=== PATIENT | female | born 1995 | race Native Hawaiian/Other Pacific Islander ===

== ENCOUNTER 2019-06-26 13:35 | Emergency (ER) | payer SELFPAY ==
--- NOTE | 2019-06-26 14:13 | Event Note ---
ED Screening Note Date of service: 06/26/19 Time: 14:10 ED Screening Note: Pt complains of left flank pain x 2 weeks pain radiating to LLQ +dysuria hx of pyelonephritis This initial assessment/diagnostic orders/clinical plan/treatment(s) is/are subject to change based on patients health status, clinical progression and re- assessment by fellow clinical providers in the ED. Further treatment and workup at subsequent clinical providers discretion. Patient/guardian urged not to elope from the ED as their condition may be serious if not clinically assessed and managed. Initial orders include: labs
[2019-06-26 14:54] LABS: Bilirubin,Urine NEG (Negative); Blood,Urine NEG (Negative); Color,Urine Straw (Yellow); Mucus,Urine FEW /HPF; Protein,Urine <15 mg/dL mg/dL (Negative); Urobilinogen,Urine < 2.0 mg/dL (<2.0)
[2019-06-26 15:05] LABS: HCG Qualitative,Urine Negative (Negative)
[2019-06-26 16:10] LABS: Basophils # (Auto) 0.1 K/mm3 (0.0-0.1); Basophils % (Auto) 0.8 % (0.0-1.8); Eosinophils # (Auto) 0.3 K/mm3 (0.0-0.4); Eosinophils % (Auto) 2.4 % (0.0-4.3); Hematocrit 41.4 % (30.3-42.9); Hemoglobin 13.8 gm/dl (10.1-14.3); Lymphocytes # (Auto) 2.4 K/mm3 (1.2-5.4); Lymphocytes % (Auto) 20.7 % (13.4-35.0); Mean Corpuscular HGB Conc 33 % (30-34); Mean Corpuscular Volume 99 fl (79-97); Monocytes # (Auto) 0.7 K/mm3 (0.0-0.8); Monocytes % (Auto) 6.2 % (0.0-7.3); Platelet Count 294 K/mm3 (140-440); Red Blood Count 4.16 M/mm3 (3.65-5.03); Red Cell Distribution Width 13.5 % (13.2-15.2)
[2019-06-26 16:21] LABS: BUN/Creatinine Ratio 24; Blood Urea Nitrogen 17 mg/dL (7-17); Hemolysis Index 7
[2019-06-26] MEDS ORDERED: ONDANSETRON 4 MG/2 ML INJ IV ONE (19:23)
[2019-06-26] MEDS ORDERED: KETOROLAC 30 MG/1 ML INJ IV ONE (19:23)
--- NOTE | 2019-06-26 19:24 | Emergency Department Report ---
ED Abdominal Pain HPI - General Chief Complaint: Abdominal Pain Stated Complaint: LT SIDE PAIN/URINARY RETENION Time Seen by Provider: 06/26/19 14:10 Source: patient Mode of arrival: Ambulatory Limitations: No Limitations - History of Present Illness Initial Comments: Patient is a A0 22-year-old female with no past medical history who presents to the ED with content of acute onset persistent severe left lower quadrant pain that radiates to the left flank intermittently for the last 2 weeks with nausea, worse in the last 2 days. Patient also complains of dysuria and dyspareunia. Patient denies vaginal bleeding, vaginal discharge, vomiting, diarrhea, dizziness, fever, chills, cough, traumatic injury, heavy lifting, no back pain, headache or vaginal trauma. MD Complaint: abdominal pain, flank pain (left flank) -: Sudden, week(s) (2) Location: LLQ, L flank Radiation: LLQ, L flank Migration to: no migration Severity: severe Severity scale (0 -10): 7 Quality: cramping, aching, sharp Consistency: constant Improves With: nothing Worsens With: movement Associated Symptoms: denies other symptoms, nausea, dysuria, hematochezia, ano rexia. denies: vomiting, diarrhea, fever, chills, constipation, hematemesis, melena, hematuria, syncope, other - Related Data LMP Date: 05/16/19 Previous Rx's Medication Instructions Recorded Last Taken Type Ketorolac [Toradol] 10 mg PO Q8H PRN #20 tablet 06/26/19 Unknown Rx Ondansetron [Zofran Odt] 4 mg PO Q6HR PRN #12 tab.rapdis 06/26/19 Unknown Rx Allergies Allergy/AdvReac Type Severity Reaction Status Date / Time No Known Allergies Allergy Unverified 06/26/19 14:10 ED Review of Systems ROS: Stated complaint: LT SIDE PAIN/URINARY RETENION Other details as noted in HPI Constitutional: denies: chills, fever Eyes: denies: eye pain, eye discharge, vision change ENT: denies: ear pain, throat pain Respiratory: denies: cough, shortness of breath, SOB with exertion, SOB at rest, wheezing Cardiovascular: denies: chest pain, palpitations Endocrine: no symptoms reported Gastrointestinal: abdominal pain (left lower quadrant and left flank pain), nausea. denies: vomiting, diarrhea Genitourinary: denies: urgency, dysuria, discharge Musculoskeletal: denies: back pain, joint swelling, arthralgia Skin: denies: rash, lesions Neurological: denies: headache, weakness, paresthesias Psychiatric: denies: anxiety, depression Hematological/Lymphatic: denies: easy bleeding, easy bruising ED Past Medical Hx - Past Medical History Previous Medical History?: No - Surgical History Past Surgical History?: No - Social History Smoking Status: Never Smoker Substance Use Type: None - Medications Home Medications: Home Medications Medication Instructions Recorded Confirmed Last Taken Type Ketorolac [Toradol] 10 mg PO Q8H PRN #20 tablet 06/26/19 Unknown Rx Ondansetron [Zofran Odt] 4 mg PO Q6HR PRN #12 tab.rapdis 06/26/19 Unknown Rx ED Physical Exam - General Limitations: No Limitations General appearance: alert, in no apparent distress - Head Head exam: Present: atraumatic, normocephalic - Eye Eye exam: Present: normal appearance, PERRL, EOMI - ENT ENT exam: Present: normal exam, normal orophraynx, mucous membranes moist, TM's normal bilaterally, normal external ear exam - Neck Neck exam: Present: normal inspection, full ROM. Absent: tenderness, lymphadenopathy - Respiratory Respiratory exam: Present: normal lung sounds bilaterally. Absent: respiratory distress, wheezes, rhonchi, chest wall tenderness, accessory muscle use, prolonged expiratory - Cardiovascular Cardiovascular Exam: Present: regular rate, normal rhythm, normal heart sounds. Absent: systolic murmur, diastolic murmur, rubs, gallop - GI/Abdominal GI/Abdominal exam: Present: soft, tenderness (palpable left lower quadrant and left flank tenderness with no guarding or rebound), normal bowel sounds. Absent: guarding, rebound, hyperactive bowel sounds, hypoactive bowel sounds - Extremities Exam Extremities exam: Present: normal inspection, full ROM, normal capillary refill - Back Exam Back exam: Present: normal inspection, full ROM. Absent: tenderness, CVA tenderness (R), muscle spasm, paraspinal tenderness - Neurological Exam Neurological exam: Present: alert, oriented X3, CN II-XII intact, normal gait, reflexes normal - Psychiatric Psychiatric exam: Present: normal affect, normal mood - Skin Skin exam: Present: warm, dry, intact, normal color. Absent: rash ED Course Vital Signs 06/26/19 06/26/19 14:08 20:04 Temperature 97.7 F Pulse Rate 81 Respiratory 18 16 Rate Blood Pressure 139/93 O2 Sat by Pulse 100 Oximetry ED Medical Decision Making - Lab Data Result diagrams: 06/26/19 15:57 06/26/19 15:57 - Radiology Data Radiology results: report reviewed, image reviewed Abdomen pelvic CT scan with contrast shows a simple 3.8 cm left adnexal cyst consistent with ovarian cyst. There are no other abnormal findings in the abdomen and pelvis. - Medical Decision Making This is a 25-year-old female who presented to the ED with left lower quadrant abdominal pain radiating to the left flank. In the ED, patient is alert and oriented 3 and is not in distress. Patient was treated for pain in the ED with ketorolac. Lab test results show acute leukocytosis of 11,600 and hyperglycemia of 135 mg/dL. The rest of the lab test results are nonactionable including urinalysis. Abdomen pelvis CT scan with contrast shows a simple 3.8 cm left adnexal cyst consistent with left ovarian cyst. There are no other abnormal findings in the abdomen pelvis CT scan. On reevaluation, patient's pain is well-controlled with medications. Patient states that the pain has resolved with pain medication admits the ED. Patient was discharged home on pain medications and antiemetics and advised to follow-up with her BUS AIDE physician in 7-10 days for reevaluation or return to the ED immediately if symptoms get worse. - Differential Diagnosis Ovarian cyst; Kidney stones; UTI; Colitis; ectopic Critical care attestation.: If time is entered above; I have spent that time in minutes in the direct care of this critically ill patient, excluding procedure time. ED Disposition Clinical Impression: Cyst of left ovary, Acute abdominal pain in left lower quadrant Disposition: -01 TO HOME OR SELFCARE Is pt being admited?: No Does the pt Need Aspirin: No Condition: Stable Instructions: Abdominal Pain (ED), Ovarian Cyst (ED) Additional Instructions: Take medication with food, drink plenty of fluids and follow-up with your BUS AIDE physician in 7-10 days for reevaluation. Return to the ED immediately if symptoms get worse. Prescriptions: Ketorolac [Toradol] 10 mg PO Q8H PRN #20 tablet PRN Reason: Pain Ondansetron [Zofran Odt] 4 mg PO Q6HR PRN #12 tab.rapdis PRN Reason: Nausea Referrals: PRIMARY CARE, [Primary Care Provider] - 3-5 Days MARIA FERNANDA CAO MD [Staff Physician] - 7-10 days Time of Disposition: 21:31 Print Language: NAURUAN
--- NOTE | 2019-06-26 21:16 | Cat Scan Report ---
CT ABDOMEN AND PELVIS WITH CONTRAST INDICATION / CLINICAL INFORMATION: right flank pain. TECHNIQUE: Axial CT images were obtained through the abdomen and pelvis after Omnipaque 300 100 mL IV contrast. All CT scans at this location are performed using CT dose reduction for ALARA by means of automated exposure control. COMPARISON: None available. FINDINGS: LOWER CHEST: No significant abnormality. LIVER: No significant abnormality. BILIARY SYSTEM: No significant abnormality. PANCREAS: No significant abnormality. SPLEEN: No significant abnormality. ADRENALS: No significant abnormality. KIDNEYS and URETERS: No significant abnormality. STOMACH / BOWEL: No significant abnormality. The appendix is not identified with certainty. No inflam matory changes in the expected location of the appendix. PERITONEUM: No free fluid. No free air. No fluid collection. LYMPH NODES: No adenopathy. VASCULAR STRUCTURES: No significant abnormality. URINARY BLADDER: No significant abnormality. REPRODUCTIVE ORGANS: Normal appearance of the uterus and right ovary. There is a simple 3.8 cm left o varian or paraovarian cyst. ADDITIONAL FINDINGS: None. SKELETAL SYSTEM: No significant abnormality. IMPRESSION: 1. No acute abnormality in the abdomen and pelvis. 2. The simple 3.8 cm left adnexal cyst is consistent with normal physiology in this patient, and no dedicated imaging follow-up is recommended for this. Signer Name: Kevan Tiwari MD Signed: 06/26/2019 9:12 PM Workstation Name: [id number]
[2019-06-27 02:46] VITALS: BP 124/78
== END 2019-06-26 21:59 | disposition home or self-care (01) ==
LOC: ED 13:35
DX: N83.202 Unspecified ovarian cyst, left side (principal); Z79.899 Other long term (current) drug therapy
CPT/HCPCS: 36415; 74177; 80048; 81001; 81025; 83690; 85025; 96374; 96375; 99284; J1885; J2405; Q9967

== ENCOUNTER 2021-11-23 21:57 | Emergency (ER) | payer SELFPAY ==
[2021-11-23] MEDS ORDERED: ONDANSETRON 4 MG/2 ML INJ IV ONE (22:02)
[2021-11-23] MEDS ORDERED: ONDANSETRON 4 MG/2 ML INJ ONE (22:02)
[2021-11-23] MEDS ORDERED: SODIUM CHLORIDE 0.9% 1000 ML 1,000 ML ONE (22:02)
[2021-11-23] MEDS ORDERED: SODIUM CHLORIDE 0.9% 1000 ML 1,000 ML IV ONE (22:03)
--- NOTE | 2021-11-23 22:21 | Emergency Department Report ---
HPI - General Time Seen by Provider: 11/23/21 22:01 - HPI HPI: Room 2 The patient is a 26-year-old female present with a chief complaint of unresponsiveness. Per EMS the patient was found unresponsive lying on the ground at a gas station parking lot by family. EMS was called. Per family the patient has a history of substance abuse. Per EMS the patient was unresponsive with shallow respirations. Patient was administered Narcan 2 mg IV by EMS with improvement of the patient's mental status. Patient now opens her eyes and looks around but does not respond verbally ED Past Medical Hx - Past Medical History Previous Medical History?: No Additional medical history: Unknown - Surgical History Past Surgical History?: No Additional Surgical History: Unknown - Family History Family history: no significant - Social History Smoking Status: Unknown if ever smoked Substance Use Type: Other (History of "substance abuse" per family) - Medications Home Medications: Home Medications Medication Instructions Recorded Confirmed Last Taken Type Ketorolac [Toradol] 10 mg PO Q8H PRN #20 tablet 06/26/19 Unknown Rx Ondansetron [Zofran Odt] 4 mg PO Q6HR PRN #12 tab.rapdis 06/26/19 Unknown Rx ED Review of Systems ROS: Stated complaint: UNRESPONSIVE Other details as noted in HPI Comment: Unobtainable due to pts medical conditions Physical Exam - Physical Exam Physical Exam: GENERAL: The patient is well-developed well-nourished female lying on stretcher with eyes open making eye contact but not responding verbally. [] HEENT: Normocephalic. Atraumatic. Extraocular motions are intact. Patient has moist mucous membranes. NECK: Supple. Trachea midline CHEST/LUNGS: Clear to auscultation. There is no respiratory distress noted. HEART/CARDIOVASCULAR: Regular. There is tachycardia. There is no gallop rub or murmur. ABDOMEN: Abdomen is soft, nontender. Patient has normal bowel sounds. There is no abdominal distention. SKIN: There is no rash. There is no edema. There is no diaphoresis. NEURO: The patient is awake and alert but does not respond verbally. Patient makes eye contact and looks around the room. Patient does grimace and localize with sternal rub. The patient is not cooperative with neurologic exam. MUSCULOSKELETAL: There is no evidence of acute injury. ED Course - Reevaluation(s) Reevaluation #1: 11/24/21 01:20 Patient now A&O x3, speaking clearly and ambulatory.-patient denies any physical complaints at this time. Patient states she remembers "smoking a blunt". Patient states she does not wish to stay in the hospital for further evaluation. ED Medical Decision Making - Lab Data Result diagrams: 11/23/21 22:40 11/23/21 22:40 Laboratory Tests 11/23/21 11/23/21 11/23/21 22:40 22:40 22:40 WBC 12.0 H RBC 4.00 Hgb 13.4 Hct 40.2 MCV 101 H MCH 34 H MCHC 33 RDW 13.1 L Plt Count 264 Lymph % (Auto) 18.7 [place] % (Auto) 7.7 H Eos % (Auto) 0.2 Baso % (Auto) 0.5 Lymph # (Auto) 2.2 [place] # (Auto) 0.9 H Eos # (Auto) 0.0 Baso # (Auto) 0.1 Seg Neutrophils % 72.9 H Seg Neutrophils # 8.8 H Sodium 143 Potassium 3.5 L Chloride 106.6 Carbon Dioxide 19 L Anion Gap 21 BUN 17 Creatinine 0.9 Estimated GFR > 60 BUN/Creatinine Ratio 19 Glucose 107 H Calcium 8.9 Total Bilirubin 0.90 AST 19 ALT 10 Alkaline Phosphatase 88 Ammonia 17.0 L Total Creatine Kinase 120 CK-MB (CK-2) 1.6 CK-MB (CK-2) Rel Index 1.3 Troponin T < 0.010 Total Protein 7.0 Albumin 4.3 Albumin/Globulin Ratio 1.6 TSH Free T4 HCG, Qual Salicylates Acetaminophen Plasma/Serum Alcohol 11/23/21 11/23/21 11/23/21 22:40 22:40 22:40 WBC RBC Hgb Hct MCV MCH MCHC RDW Plt Count Lymph % (Auto) [place] % (Auto) Eos % (Auto) Baso % (Auto) Lymph # (Auto) [place] # (Auto) Eos # (Auto) Baso # (Auto) Seg Neutrophils % Seg Neutrophils # Sodium Potassium Chloride Carbon Dioxide Anion Gap BUN Creatinine Estimated GFR BUN/Creatinine Ratio Glucose Calcium Total Bilirubin AST ALT Alkaline Phosphatase Ammonia Total Creatine Kinase CK-MB (CK-2) CK-MB (CK-2) Rel Index Troponin T Total Protein Albumin Albumin/Globulin Ratio TSH 5.820 H Free T4 1.40 HCG, Qual Salicylates < 0.3 L Acetaminophen 5.0 L Plasma/Serum Alcohol 11/23/21 11/23/21 22:40 22:40 WBC RBC Hgb Hct MCV MCH MCHC RDW Plt Count Lymph % (Auto) [place] % (Auto) Eos % (Auto) Baso % (Auto) Lymph # (Auto) [place] # (Auto) Eos # (Auto) Baso # (Auto) Seg Neutrophils % Seg Neutrophils # Sodium Potassium Chloride Carbon Dioxide Anion Gap BUN Creatinine Estimated GFR BUN/Creatinine Ratio Glucose Calcium Total Bilirubin AST ALT Alkaline Phosphatase Ammonia Total Creatine Kinase CK-MB (CK-2) CK-MB (CK-2) Rel Index Troponin T Total Protein Albumin Albumin/Globulin Ratio TSH Free T4 HCG, Qual Negative Salicylates Acetaminophen Plasma/Serum Alcohol < 0.01 UA/UDS pending - EKG Data -: EKG Interpreted by Mo EKG shows normal: sinus rhythm, axis Rate: normal (97 bpm) - EKG Data When compared to previous EKG there are: previous EKG unavailable Interpretation: other (No ischemic changes seen) - Radiology Data Radiology results: report reviewed (CT head), image reviewed (CT head) [facility] [address] [place] [address] Cat Scan Report Signed Patient: SOHAM YI MR#: [id number] : 1995 Acct:[id number] Age/Sex: 26 / F ADM Date: 11/23/21 Loc: ED Attending Dr: Ordering Physician: ALEXANDRIA BERMAN MD Date of Service: 11/23/21 Procedure(s): CT head/brain wo con Accession Number(s): [id number] cc: ALEXANDRIA BERMAN MD CT HEAD WITHOUT CONTRAST INDICATION / CLINICAL INFORMATION: Altered mental status. TECHNIQUE: All CT scans at this location are performed using CT dose reduction for ALARA by means of automated exposure control. COMPARISON: None available. FINDINGS: HEMORRHAGE: None. EXTRA-AXIAL SPACES: Normal in size and morphology for the patient's age. VENTRICULAR SYSTEM: Normal in size and morphology for the patient's age. CEREBRAL PARENCHYMA: No significant abnormality. No acute territorial infarct. MIDLINE SHIFT OR HERNIATION: None. CEREBELLUM / BRAINSTEM: No significant abnormality. ORBITS: Normal as visualized. SOFT TISSUES of HEAD: No significant abnormality. CALVARIUM: No significant abnormality. PARANASAL SINUSES / MASTOID AIR CELLS: Normal as visualized. ADDITIONAL FINDINGS: None. IMPRESSION: 1. No acute intracranial abnormality. Signer Name: Jeff Braxton MD Signed: 11/23/2021 11:36 PM Workstation Name: [id number] Transcribed By: TL Dictated By: Jeff Braxton MD Electronically Authenticated By: Jeff Braxton MD Signed Date/Time: 11/23/212335 DD/ 34 TD/TT: - Differential Diagnosis Substance abuse, ICH, metabolic encephalopathy Critical care attestation.: If time is entered above; I have spent that time in minutes in the direct care of this critically ill patient, excluding procedure time. ED Disposition Clinical Impression: Opiate overdose Disposition: 07 LEFT AGAINST MEDICAL ADVICE Is pt being admited?: No Does the pt Need Aspirin: No Condition: Undetermined Time of Disposition: 01:21 (Patient leaving AMA)
[2021-11-23 23:09] LABS: Basophils # (Auto) 0.1 K/mm3 (0.0-0.1); Basophils % (Auto) 0.5 % (0.0-1.8); Eosinophils % (Auto) 0.2 % (0.0-4.3); Hematocrit 40.2 % (30.3-42.9); Hemoglobin 13.4 gm/dl (10.1-14.3); Lymphocytes # (Auto) 2.2 K/mm3 (1.2-5.4); Lymphocytes % (Auto) 18.7 % (13.4-35.0); Mean Corpuscular HGB Conc 33 % (30-34); Mean Corpuscular Volume 101 fl (79-97); Monocytes # (Auto) 0.9 K/mm3 (0.0-0.8); Monocytes % (Auto) 7.7 % (0.0-7.3); Platelet Count 264 K/mm3 (140-440); Red Cell Distribution Width 13.1 % (13.2-15.2)
[2021-11-23 23:32] LABS: Creatine Kinase MB 1.6 ng/mL (0.0-4.0)
[2021-11-23 23:35] LABS: Alanine Aminotransferase 10 units/L (7-56); Albumin 4.3 g/dL (3.9-5); BUN/Creatinine Ratio 19; Blood Urea Nitrogen 17 mg/dL (7-17); Calcium 8.9 mg/dL (8.4-10.2); Hemolysis Index 8
--- NOTE | 2021-11-23 23:41 | Cat Scan Report ---
CT HEAD WITHOUT CONTRAST INDICATION / CLINICAL INFORMATION: Altered mental status. TECHNIQUE: All CT scans at this location are performed using CT dose reduction for ALARA by means of automated e xposure control. COMPARISON: None available. FINDINGS: HEMORRHAGE: None. EXTRA-AXIAL SPACES: Normal in size and morphology for the patient's age. VENTRICULAR SYSTEM: Normal in size and morphology for the patient's age. CEREBRAL PARENCHYMA: No significant abnormality. No acute territorial infarct. MIDLINE SHIFT OR HERNIATION: None. CEREBELLUM / BRAINSTEM: No significant abnormality. ORBITS: Normal as visualized. SOFT TISSUES of HEAD: No significant abnormality. CALVARIUM: No significant abnormality. PARANASAL SINUSES / MASTOID AIR CELLS: Normal as visualized. ADDITIONAL FINDINGS: None. IMPRESSION: 1. No acute intracranial abnormality. Signer Name: Jeff Braxton MD Signed: 11/23/2021 11:36 PM Workstation Name: [id number]
[2021-11-23 23:43] LABS: Free T4 (Free Thyroxine) 1.4 ng/dL (0.76-1.46)
[2021-11-24 00:40] VITALS: BP 125/52
--- NOTE | 2021-11-24 14:05 | Electrocardiograph Report ---
[facility] Test Date: 2021-11-23 Test Time: 22:59:03 Pat Name: SOHAM YI Department: Room: Gender: F [employer]: [place] : 1995 Requested By: ALEXANDRIA BERMAN Order Number: [id number] Reading MD: John Adkins Measurements Intervals [place] Rate: 97 P: 68 UT: 127 QRS: 63 QRSD: 91 T: 60 QT: 404 QTc: 515 Interpretive Statements Sinus rhythm Prolonged QT interval No previous ECG available for comparison Electronically Signed On 11-24-2021 14:04:50 EDT by John Adkins
== END 2021-11-24 01:26 | disposition left against medical advice (07) ==
LOC: ED 21:57
DX: T40.601A Poisoning by unspecified narcotics, accidental (unintentional), initial encounter (principal); Y92.89 Other specified places as the place of occurrence of the external cause
CPT/HCPCS: 36415; 70450; 80053; 82140; 82550; 82553; 84439; 84443; 84484; 84703; 85025; 93005; 96361; 96374; 99285; J2405; J7030; 80320; G0480